=== PATIENT | female | born 1995 | race Caucasian/White ===

== ENCOUNTER 2018-04-12 22:03 | Emergency (ER) | payer OTHER ==
[~2018-04-12] VITALS: Ht 154.9 cm; Wt 68.1 kg
[2018-04-12 22:05] VITALS: BP 140/98
--- NOTE | 2018-04-12 22:17 | NUR ---
PATIENT PRESENTS TO ED WITH NECK PAIN RADIATING TO LOWER BACK X1 HR. PT STATES SHE WAS AT HOME AND FELL ON A WET FLOOR. PAIN IS 7/10. PT DENIES N/V/D; SKIN IS PINK/WARM/DRY; AAOX4 WITH EVEN AND STEADY GAIT; LUNGS CLEAR BL; HR EVEN AND REGULAR; PT DENIES ANY FEVER, CP, SOB, OR COUGH AT THIS TIME; PATIENT STATES PAIN OF 7/10 AT THIS TIME; VSS; PATIENT POSITIONED FOR COMFORT; HOB ELEVATED; BEDRAILS UP X2; BED DOWN. ER MD MADE AWARE OF PT STATUS. CONTINUE TO MONITOR.
--- NOTE | 2018-04-12 22:17 | NUR ---
PT TAKEN TO BED 7
--- NOTE | 2018-04-12 22:21 | NUR ---
Dr. Rebollar evaluating patient at bedside.
[2018-04-12] MEDS ORDERED: CYCLOBENZAPRINE 10 MG TAB PO ONE (22:25)
[2018-04-12] MEDS ORDERED: KETOROLAC 30 MG/ML VIAL IM ONE (22:25)
--- NOTE | 2018-04-12 22:29 | NUR ---
PT TAKEN TO XRAY
--- NOTE | 2018-04-12 22:42 | NUR ---
PT RETURN FROM XRAY
--- NOTE | 2018-04-12 22:51 | NUR ---
Dr. Rebollar re-evaluating patient at bedside.
[2018-04-12 22:58] VITALS: BP 140/98
--- NOTE | 2018-04-12 22:58 | NUR ---
Patient discharged with v/s stable. Written and verbal after care instructions given and explained. Patient alert, oriented and verbalized understanding of instructions. Ambulatory with steady gait. All questions addressed prior to discharge. ID band removed. Patient advised to follow up with PMD. Rx of Ibuprofen, Flexeril given. Patient educated on indication of medication including possible reaction and side effects. Opportunity to ask questions provided and answered.
== END 2018-04-12 22:58 | disposition home or self-care (01) ==
LOC: MED 22:03
DX: M54.9 Dorsalgia, unspecified (principal); W18.39XA Other fall on same level, initial encounter; Y93.89 Activity, other specified; Y99.8 Other external cause status; Y92.89 Other specified places as the place of occurrence of the external cause
CPT/HCPCS: 72072; 72100; 81025; 96372; 99284; J1885